=== PATIENT | female | born 2005 | race African-American/Black ===

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

== ENCOUNTER 2024-04-16 14:14 | Emergency (ER) | payer BC, SELFPAY ==
[2024-04-16 14:44] VITALS: BP 135/78; PULSE 88; RESP 16; TEMP 36.2; O2SAT 100
--- NOTE | 2024-04-16 15:42 | ED_ITS ---
HPI - Ear Problem General Chief complaint: Ear Stated complaint: Ear Pain Time Seen by Provider: 04/16/24 15:37 Source: patient and RN notes reviewed Mode of arrival: ambulatory Limitations: no limitations History of Present Illness HPI Narrative: Patient presents today complaining of bilateral ear pressure since this morning with nasal congestion x3 days. Denies drainage, but does report also report decreased hearing. Patient currently rates her pain 7/10 and has tried no [id number] treatment prior to arrival. Related Data Home Medications ?Medication ?Instructions ?Recorded ?Confirmed ?Last Taken ?Type cetirizine 10 mg tablet (Zyrtec) 10 mg PO DAILY PRN Allergy Symptoms 06/24/21 04/16/24 06/17/21 History etonogestrel 68 mg subdermal 1 implant subdermal ONCE 03/06/24 04/16/24 Unknown History implant (Nexplanon) Allergies Allergy/AdvReac Type Severity Reaction Status Date / Time No Known Allergies Allergy Verified 04/16/24 14:40 Review of Systems Review of Systems: CONSTITUTIONAL: Denies body aches, fever, chills, or sweats. EYES: Denies visual changes, redness, or discharge. ENT: Denies rhinorrhea, sore throat. + bilateral ear pressure and nasal congestion, decreased hearing CARDIOVASCULAR: Denies chest pain, palpitations, or edema. RESPIRATORY: Denies cough or dyspnea. GASTROINTESTINAL: Denies abdominal pain, nausea, vomiting, or diarrhea. GENITOURINARY: Denies dysuria or hematuria. SKIN: Denies rash, itching, or wounds. MUSCULOSKELETAL: Denies back pain, joint pain, or myalgia. NEUROLOGIC: Denies headache, numbness, tingling, or weakness. PSYCH: Denies depression or anxiety. [facility] Past Medical History Medical History Seasonal allergies FATOU (obstructive sleep apnea) (~2009) Surgical History Surgical History History of repair of ACL (~04/2023) left History of tonsillectomy and adenoidectomy Family History Family History Other Diabetes mellitus No family history of hypertension No family history of malignant neoplasm Social History Social History Social History: Carol lives with her grandmother, she is taking college classes. Smoking status: Never smoker Alcohol intake: never Substance use: current Substance use type: marijuana Lack of Transportation: No Lack of Food: Never True Current Housing: I Have Housing Concerned About Future Housing: No Difficulty Paying Gas/Electric Bills: No Difficulty Paying for Meds: No Currently Unemployed: No Education: High School Diploma/GED Living arrangements: with family Additional living arrangements comments: WITH GRANDMOTHER Occupation/Education: occupation Additional occupation/education comments: [employer] Gender identity (if verbalized by the patient): Female Spiritual care concerns: No Comments At time of signature, I have reviewed and agree with nursing past medical, surgical, social and family history unless otherwise noted. Please see nursing chart for further information. There is no relevant family history pertinent to the presenting complaint Exam Narrative: GENERAL: Well-appearing, well-nourished, and in no acute distress. HEAD: Normocephalic, atraumatic. EYES: EOMI. No redness or drainage. Conjunctivae normal. ENT: Mucous membranes pink and moist. Nares congested. Left TM normal. Right TM erythematous and dull. NECK: Normal AROM. CHEST: No respiratory distress. EXTREMITIES: Normal range of motion. No edema. SKIN: Warm, dry, no rash. Capillary refill normal. Normal skin turgor. NEURO: No focal deficits. Alert and oriented x3. Gait steady. PSYCH: Normal affect. No signs of depression or anxiety. Course Course Level of Care: Express Care Visit Vital Signs Vital signs: Vital Signs Temperature 97.2 F L 04/16/24 14:44 Pulse Rate 88 04/16/24 14:44 Respiratory Rate 16 04/16/24 14:44 Blood Pressure 135/78 04/16/24 14:44 Pulse Oximetry 100 04/16/24 14:44 Temperature 97.2 F L 04/16/24 14:44 Pulse Rate 88 04/16/24 14:44 Respiratory Rate 16 04/16/24 14:44 Blood Pressure 135/78 04/16/24 14:44 Pulse Oximetry 100 04/16/24 14:44 Reviewed Medical Decision Making MDM Narrative Medical decision making narrative: Patient will be treated with amoxicillin for right otitis media. Discussed [id number] medication use as well. Anticipatory guidance given. Differential Diagnosis Differential Diagnosis: Otitis media, otitis externa, ruptured TM, serous otitis, cerumen impaction, URI Vital Signs Vital Signs: Vital Signs Temperature 97.2 F L 04/16/24 14:44 Pulse Rate 88 04/16/24 14:44 Respiratory Rate 16 04/16/24 14:44 Blood Pressure 135/78 04/16/24 14:44 Pulse Oximetry 100 04/16/24 14:44 Temperature 97.2 F L 04/16/24 14:44 Pulse Rate 88 04/16/24 14:44 Respiratory Rate 16 04/16/24 14:44 Blood Pressure 135/78 04/16/24 14:44 Pulse Oximetry 100 04/16/24 14:44 Critical Care Time Critical Care Time Critical Care Time: No Discharge Plan Discharge Clinical Impression: Acute right otitis media Patient Disposition: Home, Self-Care Condition: Stable Instructions: Antibiotic Form, Ear Infection (ED) Additional Instructions: Please take the amoxicillin as prescribed for your right-sided ear infection. Take Tylenol or ibuprofen if needed for pain. Follow-up with your PCP in 3 days if symptoms are not improving. Your blood pressure was elevated above 120/80 today at Urgent Care. This puts you above the threshold for follow up. Please schedule a followup visit with your personal physician as soon as possible, for further evaluation and treatment. Even blood pressure exceeding 120/80 may indicate pre-hypertension. Patient Language: Citizen Of [place] Prescriptions: New amoxicillin 875 mg tablet 875 mg PO Q12H 7 Days Qty: 14 0RF No Action Nexplanon 68 mg implant 1 implant subdermal ONCE Rx Instructions: as a single dose cetirizine [Zyrtec] 10 mg Tablet 10 mg PO DAILY PRN (Reason: Allergy Symptoms) Follow-up/Referrals: PHYSICIAN,CERTIFIED ORTHOTIST PRACTICE MANAGER [Primary Care Provider] - Time of Disposition: 15:45
== END 2024-04-16 15:51 | disposition home or self-care (01) ==
PROVIDERS: Emergency Provider Nurse Practitioner
DX: H66.91 Otitis media, unspecified, right ear (principal)
CPT/HCPCS: 99213; G0463

== ENCOUNTER 2024-07-28 10:41 | Emergency (ER) | payer BC, SELFPAY ==
[2024-07-28 11:03] VITALS: BP 122/73; PULSE 102; RESP 18; TEMP 35.9; O2SAT 99
--- NOTE | 2024-07-28 11:29 | ED.URI ---
HPI - URI/Sore Throat General Chief Complaint: Upper Respiratory Infection Stated Complaint: SORE THROAT/STUFFY NOSE/BODY ACHES Time Seen by Provider: 07/28/24 11:15 Source: patient and RN notes reviewed Mode of arrival: ambulatory Limitations: no limitations History of Present Illness HPI Narrative: 18-year-old female presents Express Care with this sore throat, congestion, cough, body aches for 2 days. Patient says she took a home COVID that was negative. Patient has not taken anything [id number] for for supportive treatment. She denies any difficulty breathing, difficulty swallowing, or excessive drooling. Related Data Home Medications ?Medication ?Instructions ?Recorded ?Confirmed ?Last Taken ?Type etonogestrel 68 mg subdermal 1 implant subdermal ONCE 03/06/24 07/28/24 Unknown History implant (Nexplanon) Allergies Allergy/AdvReac Type Severity Reaction Status Date / Time No Known Allergies Allergy Verified 07/28/24 10:55 Review of Systems Review of Systems: CONSTITUTIONAL: Denies fever, chills, or sweats. EYES: Denies visual changes, redness, or discharge. ENT: Denies rhinorrhea, or otalgia. Positive for congestion sore throat CARDIOVASCULAR: Denies chest pain, palpitations, or edema. RESPIRATORY: Positive for cough negative for dyspnea. GASTROINTESTINAL: Denies abdominal pain, nausea, vomiting, or diarrhea. GENITOURINARY: Denies dysuria or hematuria. SKIN: Denies rash or itching. MUSCULOSKELETAL: Denies back pain, joint pain, or myalgia. NEUROLOGIC: Denies headache, numbness, or weakness. PSYCHIATRIC: Denies anxiety or depression. All other systems reviewed are negative, except as documented in HPI. REPLACED BY [facility] Past Medical History Medical History Seasonal allergies FTAOU (obstructive sleep apnea) (~2009) Surgical History Surgical History History of repair of ACL (~04/2023) left History of tonsillectomy and adenoidectomy Family History Family History Other Diabetes mellitus No family history of hypertension No family history of malignant neoplasm Social History Social History Social History: Carol lives with her grandmother, she is taking college classes. Smoking status: Never smoker Alcohol intake: never Substance use: current Substance use type: marijuana Lack of Transportation: No Lack of Food: Never True Current Housing: I Have Housing Concerned About Future Housing: No Difficulty Paying Gas/Electric Bills: No Difficulty Paying for Meds: No Currently Unemployed: No Education: High School Diploma/GED Living arrangements: with family Additional living arrangements comments: WITH GRANDMOTHER Occupation/Education: occupation Additional occupation/education comments: [employer] Gender identity (if verbalized by the patient): Female Spiritual care concerns: No Comments At the time of my signature, I reviewed and agree with the nursing past medical, surgical, social, and family history. There is no relevant family history pertinent to the patient complaint. Exam Narrative: GENERAL: This is a well-nourished, well-developed adult, in no apparent distress. They are non ill-appearing, nontoxic appearing. HEAD: normocephalic, atraumatic. EYES: Sclera clear/white. Vision is grossly intact. EARS: External ears normal, auditory canals with cerumen present and without drainage, TMs normal without perforation. Hearing grossly intact. NOSE: External nose normal with no obvious nasal discharge, nasal turbinates with mild erythema, no rhinorrhea. THROAT: Mucous membranes moist, posterior pharynx erythematous. Postnasal drip present. Uvula midline. NECK: Neck supple, non-tender without lymphadenopathy, masses or thyromegaly. CARDIOVASCULAR: Regular rate and rhythm without murmurs, gallops, or rubs. RESPIRATORY: Clear to auscultation. Breath sounds equal bilaterally. No wheezes, rales, or rhonchi. SKIN: warm, Dry, intact with no suspicious lesions or rash, good texture and turgor. NEURO: awake, alert, and oriented to person, place and time. There were no obvious focal neurologic abnormalities. EXTREMITIES: No joint tenderness, effusion, or edema noted. Course Course Level of Care: Express Care Visit Vital Signs Vital signs: Vital Signs Temperature 96.6 F L 07/28/24 11:03 Pulse Rate 102 H 07/28/24 11:03 Respiratory Rate 18 07/28/24 11:03 Blood Pressure 122/73 07/28/24 11:03 Pulse Oximetry 99 07/28/24 11:03 Temperature 96.6 F L 07/28/24 11:03 Pulse Rate 102 H 07/28/24 11:03 Respiratory Rate 18 07/28/24 11:03 Blood Pressure 122/73 07/28/24 11:03 Pulse Oximetry 99 07/28/24 11:03 Reviewed MDM - URI/Sore Throat MDM Narrative Medical decision making narrative: Influenza is negative. Rapid strep is positive. Will treat empirically with amoxicillin. It is also likely the patient also has a viral illness but since she is symptomatic will treat with antibiotics for strep throat. Discussed physical exam findings. Advised supportive measures and signs/symptoms to go to the ER. Pt is appropriate for outpt treatment and f/u. Differential Diagnosis Differential diagnosis: Likely upper respiratory infection, viral infection and pharyngitis (Strep) Lab Data Attestation: I reviewed the patient's lab results. Labs: Lab Results 07/28/24 Range/Units 11:32 POC Influenza A Ag Negative (Negative) POC Influenza B Ag Negative (Negative) POC Grp A Strep Screen Positive (Negative) Critical Care Time Critical Care Time Critical Care Time: No Discharge Plan Discharge Clinical Impression: Acute streptococcal pharyngitis Patient Disposition: Home Condition: Stable Instructions: Antibiotic Form, Strep Throat (DC) Additional Instructions: You tested positive for strep throat. ?Please take the amoxicillin as prescribed until gone. ?You will be contagious for 24 hours after starting the medication. ?After 24 hours on antibiotics throw tooth brush away and start using a new one. Wash your sheets and cup/water bottle that is used daily. Do not share drinks. Take Tylenol or Ibuprofen for pain or fever, if able. You may use Flonase for nasal congestion. You may take Zyrtec or Claritin [id number] for for congestion. You may use throat lozenges as directed or do salt water gargle rinses for your sore throat. ?Rest and stay hydrated. ?Follow up with your PCP in 3 days if symptoms are not improving. ?Go to the ER immediately if you develop worsening symptoms such as shortness of breath, difficulty swallowing. ? Patient Language: Bolivian Prescriptions: New amoxicillin 500 mg tablet 500 mg PO Q12H 10 Days Qty: 20 0RF No Action Nexplanon 68 mg implant 1 implant subdermal ONCE Rx Instructions: as a single dose Wegovy 0.25 mg/0.5 mL pen injector 0.25 mg subcut WEEKLY Qty: 2 0RF Rx Instructions: administer weeks 1 through 4 of therapy Follow-up/Referrals: Promise Henning NP [Primary Care Provider] - Time of Disposition: 11:28
[2024-07-28 11:34] LABS: EDINFLUASCREEN Negative (Negative); EDINFLUBSCREEN Negative (Negative); EDSTREPNEGPOS1 Positive (Negative)
== END 2024-07-28 11:31 | disposition home or self-care (01) ==
PROVIDERS: PCP Nurse Practitioner Family
DX: J02.0 Streptococcal pharyngitis (principal); F12.90 Cannabis use, unspecified, uncomplicated
CPT/HCPCS: 87804; 87880; 99213; G0463

== ENCOUNTER 2025-03-29 10:55 | Outpatient (CLI) | payer BC, SELFPAY ==
[2025-03-29 18:52] LABS: Add Urine Microscopic? YES; Appearance Urine Turbid (Clear); Glucose Urine UA Negative (Negative); Leukocyte Esterase Ur Negative LEU/UL (Negative); Need Manual Microscopic Reviewed; Nitrate Urine Negative (Negative); Non Pathogenic Casts 0-2; Specific Grav Ur 1.025 (1.001-1.035)
== END 2025-03-29 10:56 | disposition home or self-care (01) ==
LOC: ANHGOSHLAB 10:57
PROVIDERS: PCP Nurse Practitioner Family; Visit Provider Nurse Practitioner Family
DX: R39.9 Unspecified symptoms and signs involving the genitourinary system (principal)
CPT/HCPCS: 81001

== ENCOUNTER 2025-04-10 15:09 | Outpatient (CLI) | payer BC, SELFPAY ==
--- OUTSIDE RECORDS SUMMARY | 2025-04-10 15:12 | XMS_ITS | Clinical Summary ---
Author Organization [facility] Address [address] [place] [address] Care Team Providers Care Cable Television Access Coordinator Name Role Phone Juan M Patel MD Primary Care Provider [phone] Source Comments [facility],non-owned Affiliates and Associated Physician Practices is amultiple site organization consisting of ambulatory clinics and hospital sitesin [place], [place], [place] and [place]. This disclosure is being madepursuant to the Care Everywhere program and may not contain all information available regarding this patient. Last updated 18.[facility] [employer] Allergies No known active allergies Medications * This document contains information received from the source organization and may not represent a complete record from that organization. * Be aware that medications may not be up to date on this document. Alwaysverify current medications with the patient. montelukast (SINGULAIR) 5 MG chew tablet Take 1 Tab by mouth once daily 30 Tab 5 05/30/2015 Active fluticasone propionate (FLONASE) 50 MCG/ACT nasal spray [place] 2 Sprays into each nostril once daily Aim at outer edges inside nostrils. 1 g 5 05/30/2015 Active loratadine (CLARITIN) 10 MG tablet TK 1 T PO QD 06/10/2019 Active Active Problems Problem Noted Date Diagnosed Date Severe obesity due to excess calories without serious comorbidity with body mass index (BMI) greater than 99th percentile for age in pediatric patient 04/18/2020 Overview (04/18/2020): Due to excess weight, pt. is at high risk for developing additional obesity related comorbidities including: Obstructive sleep apnea Diabetes Hypertension Impaired glucose tolerance Hyperlipidemia Orthopedic problems Non-alcoholic fatty liver disease Psychiatric problems Polycystic ovarian syndrome Behavior Eating Goals: 1. Set meal and snack times - no snacking between times 2. No sugary drinks - only water and milk 3. Measure portion sizes - especially of grains and sweet treats Behavior Activity Goals: 1. At least 30 minutes of activity each day Carol Fuller and her caregivers met extensively with our dietitian today. Topics covered included age-appropriate portion sizes, recommended daily allowances, providing balanced meals, how to read food labels, and choosing only zero calorie drinks between meals. Sample menus and a three day food diary were provided. Counseled mom for 30 minutes about plan and goals below and elicited agreement to follow plan. 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 Never 08/05/2021 Q2: How many drinks containi ng alcohol do you have on a typical day when you are drinking? Patient does not drink Q3: How often do you have si x or more drinks on one occasion? 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 Gender Identity Not on file Sexual Orientation Not on file Last Filed Vital Signs Vital Sign Reading Time Taken Comments Blood Pressure 140/101 08/05/2021 6:49 PM CDT Pulse 82 08/05/2021 6:49 PM CDT Temperature 36.7 C (98 F) 08/05/2021 6:49 PM CDT Respiratory Rate 16 08/05/2021 6:49 PM CDT Oxygen Saturation - - Inhaled Oxygen Concentration - - Weight 147.1 kg (324 lb 6.4 oz) 08/05/2021 6:49 PM CDT Height 167.6 cm (5' 6) 08/05/2021 6:49 PM CDT Body Mass Index 52.36 08/05/2021 6:49 PM CDT Plan of Treatment Health Maintenance Due Date Last Done Comments HIV SCREENING 12/13/2019 HPV VACCINE (1 - 3-dose series) 12/13/2019 CHLAMYDIA/GONORRHEA SCREENING 2020 MENINGOCOCCAL (Group B) VACC INE SHARED DECISION-MAKING (1 of 2 - Standard) 2020 HEPATITIS C SCREENING 12/08/2022 DTAP/TDAP/TD VACCINES (1 - Tdap) 12/13/2023 HEPATITIS B VACCINE (1 of 3 - 19+ 3-dose series) 12/13/2023 DEPRESSION SCREENING 04/19/2024 COVID-19 VACCINE (1 - 2024-2 6 season) 2024 INFLUENZA VACCINE (#1) 2024 ZOSTER VACCINE (1 of 2) 2054 HIB VACCINE Aged Out No longer eligi ble based on patient's age to complete this topic MENINGOCOCCAL GROUPS A/C/Y/W VACCINE Aged Out No longer eligible b ased on patient's age to complete this topic PNEUMOCOCCAL VACCINE Aged Out No long er eligible based on patient's age to complete this topic Insurance [employer] Care Teams Cable Television Access Coordinator Relationship Specialty Start Date End Date Juan M Patel MD [address] [address] [place] [address] PCP - General Pediatrics 12/02/23
--- OUTSIDE RECORDS SUMMARY | 2025-04-10 15:12 | XMS_ITS | Clinical Summary ---
Author Organization [facility] Address [address] [place] [id number] Care Team Providers Care Foundry Engineer Name Role Phone Le Porras MD Primary Care Provider [phone] Allergies No known active allergies Medications oxyCODONE-aceta minophen (PERCOCET) 5-325 mg per tabletIndicatio ns:Pain Take 1-2 tablets by mouth every 6 (six) hours as needed for pain 40 tablet 05/03/2023 Active meloxicam (MOBIC) 15 mg tablet Take 1 tablet (15 mg total) by mouth daily 30 tablet 09/28/2023 Active Active Problems Problem Noted Date Diagnosed Date Left anterior cruciate ligament tear 12/02/2023 S/P ACL reconstruction 06/22/2023 S/P arthroscopic partial medial meniscectomy of left knee 06/22/2023 Left knee injury, subsequent encounter 4 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 Acute medial meniscus tear of left knee 01/06/20 23 Sprain of anterior cruciate ligament of left kne e 01/05/2023 Acute pain of left knee 01/05/2023 Injury of left knee 01/05/2023 Stiffness of left knee 01/05/2023 Surgical History Surgery Date Site/Laterality Comments TONSILLECTOMY AND ADENOIDECTOMY Family History Medical History Relation Name Comments Diabetes Father Anesthesia problems Neg Hx Relation Name Status Comments Father Social History Tobacco Use Types Packs/Day Years Used Date Smoking Tobacco: Never Smokeless Tobacco: Never Tobacco Cessation:Counseling Given: Not Answered AUDIT-C Answer Date Recorded Q1: How often do you have a drink containing alcohol? Never 04/29/2023 Q2: How many drinks containi ng alcohol do you have on a typical day when you are drinking? Patient does not drink Q3: How often do you have si x or more drinks on one occasion? Never 04/29/2023 Personal Safety Answer Date Recorded Have you ever been in or are you currently in a harmful physical or emotional relationship or is someone making you feel afraid or unsafe? 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 OFFICER Pulse 90 05/03/2023 6:35 PM CHIEF SUPPLY CHAIN OFFICER Temperature 36.3 C (97.3 F) 05/03/2023 6:35 PM CHIEF SUPPLY CHAIN OFFICER Respiratory Rate 19 05/03/2023 6:35 PM CHIEF SUPPLY CHAIN OFFICER Oxygen Saturation 99% 05/03/2023 6:35 PM CHIEF SUPPLY CHAIN OFFICER Inhaled Oxygen Concentration - - Weight 143.3 kg (316 lb) 05/20/2023 1:45 PM CHIEF SUPPLY CHAIN OFFICER Height 167.6 cm (5' 6) 05/20/2023 1:45 PM CHIEF SUPPLY CHAIN OFFICER Body Mass Index 51 05/20/2023 1:45 PM CHIEF SUPPLY CHAIN OFFICER Plan of Treatment Health Maintenance Due Date Last Done Comments Depression Screening 2004 Hepatitis C Screening 2004 HPV Vaccines (2 - 2-dose series) 12/04/2019 06/05/19 20 Meningococcal B Vaccine (1 o f 2 - Standard) 2020 Regular Well Visit/Exam 18-64 2022 Covid-19 Vaccine (3 - 2024-2 6 season) 2024 11/24/2020, 11/03/2020 Influenza Vaccine (#1) 2024 , 04/14/2019, 02/23/2018, Additional history exists DTaP/Tdap/Td Vaccine (7 - Td or Tdap) 02/03/2026 02/04/2016, 09/26/2012, 06/02/2006, Additional history exists Hepatitis B Screening Completed 06/16/2005 , 02/12/2005, 2004 Pneumococcal vaccine <65 Completed 006, 06/16/2005, 04/16/2005, Additional history exists Varicella Vaccines Completed 09/26/2012, 12/22/2005 Meningococcal Vaccine Completed 02/27/2021, 016 Medical Devices Implanted Type Area Lead Rider Device Identifier Shelf Expiration Date Model / Serial / Lot [employer] Screw Fastthread Biocomposite Interference 7mm X 20mm [id number] - Sna - [id number] Implanted:Qty: 1 on 05/03/2023 at [facility] Screw Left: Knee [employer] 02/16/2027 AR-4020C-0 7 / NA / [id number] Description:Implant pause pe rformed prior to implant being opened to sterile field. [employer] 7mm 20mm Cannulated Sheath Acl Pcl Screw Interference Titanium Ar-[id number] - Sna - [id number] Implanted:Qty: 1 on 05/03/2023 by Alex Darnell IV, MD at [facility] Screw Left: Knee [employer] 01/16/2027 AR-1370E / NA / [id number] Description:Implant pause pe rformed prior to implant being opened to sterile field. [employer] 8mm 20mm Cannulated Sheath Acl Pcl Screw Interference Titanium Ar-[id number] - Sna - [id number] Implanted:Qty: 1 on 05/03/2023 by Alex Darnell IV, MD at [facility] Screw Left: Knee [employer] 01/17/2028 AR-1380E / NA / [id number] Description:Implant pause pe rformed prior to implant being opened to sterile field. Insurance [facility] [employer] COMPENSATION GENERIC WORKERS COMPENSATION GENERIC LACHELLE MATIAS [id number] Care Teams Foundry Engineer Relationship Specialty Start Date End Date Le Porras MD [address] [address] PCP - General Pediatrics 11/16/22
[2025-04-10 18:25] LABS: Hematocrit 38.7 % (37.0-47.0); Hemoglobin 12.4 g/dL (12.0-15.0); Immature Granulocyte Percent A 0.3 % (0-0.5); Lymphocytes Absolute Auto 2.39 K/mm3 (0.9-3.2); Mean Corpuscular HGB Conc 32.0 g/dl (32-36); Mean Corpuscular Hemoglobin 29.1 pg (26-34); Mean Corpuscular Volume 90.8 fl (80-100); Nucleated Red Blood Cells Absolute Auto 0.000 K/mm3 (0.0-0.012); Nucleated Red Blood Cells Perc 0.0 % (0.0-0.2); Platelet Count Result 284 k/mm3 (150-375); Red Blood Count 4.26 M/mm3 (4.2-5.4); White Blood Count 7.8 K/mm3 (4.5-10.0)
[2025-04-10 18:40] LABS: Add Urine Microscopic? NO; Appearance Urine Clear (Clear); Glucose Urine UA Negative (Negative); Leukocyte Esterase Ur Negative LEU/UL (Negative); Nitrate Urine Negative (Negative); Specific Grav Ur 1.017 (1.001-1.035)
[2025-04-10 18:43] LABS: Alanine Aminotransferase 47 U/L (6-35); Albumin Level 3.8 g/dL (3.5-5.1); Alkaline Phosphatase 57 U/L (38-126); Anion Gap 7 mmol/L (4-12); Aspartate Amino Transferase 43 U/L (14-36); Bilirubin,Total 0.5 mg/dL (0.2-1.3); Blood Urea Nitrogen 11 mg/dL (7-17); Calcium 9.2 mg/dL (8.4-10.2); Carbon Dioxide 26 mmol/L (22-30); Chloride 107 mmol/L (98-107); Cholesterol 174 mg/dL (0-200); Estimated Glomerular Filt Rate > 60; Glucose 110 mg/dL (65-110); HDL Direct 38 mg/dL; Potassium 3.6 mmol/L (3.4-5.0); Sodium 140 mmol/L (137-145); Total Protein 7.5 g/dL (6.3-8.2); Triglycerides 94 mg/dL (<150)
[2025-04-10 19:13] LABS: Thyroid Stimulating Hormone Reflex 1.170 uIU/mL (0.465-4.68)
[2025-04-10 19:18] LABS: Hemoglobin A1C 4.9 % (<5.7)
== END 2025-04-10 15:10 | disposition home or self-care (01) ==
PROVIDERS: Nurse Practitioner Family; PCP Family Medicine; Visit Provider Nurse Practitioner Family
DX: Z00.00 Encounter for general adult medical examination without abnormal findings (principal); Z13.220 Encounter for screening for lipoid disorders; E66.01 Morbid (severe) obesity due to excess calories; Z68.43 Body mass index [BMI] 50.0-59.9, adult; R53.83 Other fatigue; E55.9 Vitamin D deficiency, unspecified; R11.0 Nausea; R10.20 Pelvic and perineal pain unspecified side; R82.998 Other abnormal findings in urine; R82.90 Unspecified abnormal findings in urine
CPT/HCPCS: 36415; 80053; 80061; 81003; 82306; 83036; 84443; 85025; 87086; 87491; 87591

== ENCOUNTER 2025-04-10 15:39 | Outpatient (CLI) | payer BC, SELFPAY ==
--- NOTE | ~2025-04-10 | XR_ITS ---
XR abdomen/kub 1V 04/10/2025 15:55 INDICATION: Abdomen pain TECHNIQUE: KUB COMPARISON: 03/08/2013 FINDINGS: Bowel gas pattern is normal. There is no evidence of free air, mass, organomegaly, ascites or obstruction. No abnormal calculi are seen. The bones appear intact. IMPRESSION: 1: No acute abdominal abnormality identified. Reviewed, dictated and finalized at location O. TIENT NURSING AIDE
== END 2025-04-10 15:40 | disposition home or self-care (01) ==
PROVIDERS: PCP Nurse Practitioner Family; Visit Provider Nurse Practitioner Family
DX: R10.9 Unspecified abdominal pain (principal); R11.2 Nausea with vomiting, unspecified
CPT/HCPCS: 74018